=== PATIENT | female | born 1995 | race African-American/Black ===

== ENCOUNTER 2019-06-04 11:24 | Emergency (ER) | payer OTHER ==
[~2019-06-04] VITALS: Ht 170.2 cm; Wt 61.2 kg
[2019-06-04 11:31] VITALS: BP 141/94
[2019-06-04 12:36] LABS: URINE BILIRUBIN NEGATIVE (Negative); URINE BLOOD NEGATIVE (Negative); URINE CLARITY SL CLOUDY; URINE COLOR YELLOW; URINE GLUCOSE-RANDOM* NEGATIVE (Negative); URINE KETONES NEGATIVE (Negative); URINE LEUKOCYTES-REFLEX 2+ (Negative); URINE NITRITE-REFLEX NEGATIVE (Negative); URINE PROTEIN (DIPSTICK) NEGATIVE (Negative); URINE SPECIFIC GRAVITY >= 1.030 (1.005-1.035); URINE UROBILINOGEN 0.2 E.U./dl (0.2-1.0)
[2019-06-04 12:46] LABS: SQUAMOUS >10 Many /LPF (0-3)
[2019-06-04 12:47] LABS: BACTERIA-REFLEX >30 Many /HPF (None Seen); URINE WBC-REFLEX >25 Many /HPF (0-5)
[2019-06-04 12:48] LABS: CASTS None Seen /LPF (None Seen); CRYSTALS None Seen /LPF (None Seen); MUCUS >6 Heavy strn/LPF (None Seen); URINE RBC None Seen /HPF (0-2)
[2019-06-04] MEDS ORDERED: BACTRIM DS TAB1 EACH PO (12:54)
[2019-06-04] MEDS ORDERED: NORCO 5-325 TA1 EAC1 PO (12:54)
== END 2019-06-04 14:03 | disposition home or self-care (01) ==
LOC: ER 11:24
PROVIDERS: Nurse Practitioner Family
DX: N76.4 Abscess of vulva (principal); N39.0 Urinary tract infection, site not specified

== ENCOUNTER 2019-12-20 15:47 | Emergency (ER) | payer OTHER ==
[~2019-12-20] VITALS: Ht 167.6 cm; Wt 63.5 kg
[~2019-12-20 15:47] MED LIST: BACTRIM DS TAB1 EACH PO; NORCO 5-325 TA1 EAC1 PO
[2019-12-20] MEDS ORDERED: NOHOMEMEDICATIONS (16:18)
[2019-12-20 17:48] VITALS: BP 122/82
== END 2019-12-20 17:48 | disposition home or self-care (01) ==
LOC: ER 15:47
PROVIDERS: Nurse Practitioner
DX: Z00.00 Encounter for general adult medical examination without abnormal findings (principal); Z20.2 Contact with and (suspected) exposure to infections with a predominantly sexual mode of transmission